=== PATIENT | female | born 1955 | race Caucasian/White ===

== ENCOUNTER 2017-05-28 07:55 | Day surgery (SDC) | payer OTHER ==
[2017-05-28] MEDS ORDERED: LIDOCAINE 4% SOLUTION 50 ML BTL (10:31)
[2017-05-28] MEDS ORDERED: MIDAZOLAM 1 MG/ML 2 ML INJ ×2 (11:16)
[2017-05-28] MEDS ORDERED: FENTAnyl 50 MCG/ML VIAL (11:16)
== END 2017-05-28 16:28 | disposition home or self-care (01) ==
LOC: GIL 07:55
DX: Z12.11 Encounter for screening for malignant neoplasm of colon (principal); D12.3 Benign neoplasm of transverse colon; K21.0 Gastro-esophageal reflux disease with esophagitis; K64.4 Residual hemorrhoidal skin tags; K57.90 Diverticulosis of intestine, part unspecified, without perforation or abscess without bleeding; I10 Essential (primary) hypertension
CPT/HCPCS: 43239; 88305; 88312; 88313